=== PATIENT | female | born 1955 | race Caucasian/White ===

== ENCOUNTER 2022-11-24 16:33 | Emergency (ER) | payer MEDICARE, OTHER, SELFPAY ==
[2022-11-24 17:00] VITALS: BP 146/77; PULSE 64; RESP 20; O2SAT 96; BMI 41.9
[2022-11-24 17:15] VITALS: BP 133/70; PULSE 62; RESP 20; TEMP 36.8; O2SAT 97; BMI 41.9
[2022-11-24 18:12] VITALS: BP 141/83; PULSE 63; RESP 18; TEMP 36.7; O2SAT 97
--- NOTE | 2022-11-24 20:51 | [facility].EDGENADL ---
Discharge Plan Disposition Patient Disposition: Home, Self-Care Condition: Good Referrals Follow up/Referrals: Zi Griffin MD [Primary Care Provider] - See instructions Clinical Impressions Clinical Impression: Epistaxis Instructions Patient Instructions: DI for Nosebleed Discharge ED Provider: Arthur Bergman General Adult HPI General Chief complaint: Epistaxis Stated complaint: Nose Bleed Time Seen by Provider: 11/24/22 17:15 Mode of Arrival: Ambulatory Source of Information: Patient Limitations: No Limitations Description of Symptoms (Recalled from ER Triage Doc. by RN): pt to ed c/o nose bleed. pt states she takes a blood thinner but reports she doesnt know which one. pt states her nose has been bleeding x2 days intermitently. pt denies any facial trauma. History of Present Illness HPI narrative: Very pleasant 67-year-old lady who presents with nosebleed x2 days. This has been intermittent. This episode has been going on for about 30 minutes. Denies any trauma. Does not believe she takes a blood thinner. No syncope, presyncope, chest pain, shortness of breath. Related Data Allergies Allergy/AdvReac Type Severity Reaction Status Date / Time INGREDIENT: NO KNOWN - NO Allergy Unknown Uncoded 07/02/17 15:00 KNOWN DRUG ALLERGY [facility] Disclaimer: The information contained in this section may have been updated after the patient was seen, as this information can be updated by other users. Social History Smoking Status: Never smoker alcohol intake: never current occupational status: employed Travel in the last 8 weeks: None ROS Obtained: Yes All systems reviewed & no additional complaints except as documented Physical Exam General General appearance: alert and in no apparent distress Head Head exam: atraumatic and normocephalic Eye Eye exam: Present normal appearance ENT ENT exam: Present other (Dried blood in the left nare.) Neck Neck exam: Present normal inspection Chest Chest inspection: Present normal inspection Respiratory Respiratory exam: Present normal lung sounds bilaterally Cardiovascular Cardiovascular exam: Present regular rate and normal rhythm Abdominal Exam Abdominal exam: Present soft Neurological Exam Neurological exam: Present alert and oriented X3 Medical Decision Making Deo Inquiry Pt receiving controlled substance: No Vital Signs: 11/24/22 17:00 11/24/22 17:15 11/24/22 18:12 Temperature 98.3 F 98.1 F Temperature Source Oral Oral Pulse Rate 63 Pulse Rate [Right Brachial] 64 62 Respiratory Rate 20 20 18 Blood Pressure 141/83 H Blood Pressure [Right Arm] 146/77 H 133/70 Blood Pressure Mean [Right Arm] 100 91 Blood Pressure Source Automatic Cuff Blood Pressure Source [Right Arm] Automatic Cuff Blood Pressure Position Sitting Blood Pressure Position [Right Arm] Sitting 02 Sat by Pulse Oximetry 96 97 Oxygen Delivery Method Room Air Room Air Room Air Medical Decision Narrative: Patient presents with a nosebleed. Upon arrival in no acute distress, vital signs are reassuring. She has no active bleeding at this time. Afrin is instilled in the left nare and pressure is held. She continues to have no bleeding. She will go home with Afrin. She has no signs of clinically significant bleeding. No syncope, presyncope, chest pain, or shortness of breath. She is comfortable with this plan. She is discharged in good condition and she is given commonsense return precautions which she verbalizes understanding of. Critical Care Time Critical Care Time Critical Care Time: No Attestation: On 11/24/22, the high probability of a clinically significant, sudden or life threatening deterioration of the following system(s) required my full and direct attention, intervention and personal management. The time I documented below is in addition to time spent performing reported procedures but includes the following listed in thi
== END 2022-11-24 18:12 | disposition home or self-care (01) ==
PROVIDERS: Emergency Provider Emergency Medicine; PCP Family Medicine
DX: R04.0 Epistaxis (principal)
CPT/HCPCS: 99283